=== PATIENT | female | born 1945 | race Caucasian/White ===

== ENCOUNTER → 2018-05-03 | Outpatient (CLI) | payer MEDICARE, OTHER ==
[~2018-05-03] MED LIST: AMLO10TA2 PO; ATEN1TAB4 PO; CALC1CAP8 PO; LISI40TA PO; MEGE20TA PO; MELO15TA24 PO; TAMO20TA PO
[2018-05-03 10:12] LABS: BASOPHILS # (AUTO) 0.03 x10^3/uL (0-0.1); BASOPHILS % (AUTO) 0 % (0-1); CULTURE INDICATED? YES; EOSINOPHILS # (AUTO) 0.24 x10^3/uL (0-0.4); EOSINOPHILS % (AUTO) 2 % (1-7); LYMPHOCYTES # (AUTO) 1.44 x10^3/uL (1-3.4); LYMPHOCYTES % (AUTO) 13 % (22-44); MD NO; MEAN CORPUSCULAR HEMOGLOBIN 31.2 pg (27.0-34.8); MEAN CORPUSCULAR HGB CONC 34.3 g/dL (32.4-35.8); MEAN PLATELET VOLUME 8.5 fL (7.4-10.4); MICROSCOPIC INDICATED; MONOCYTES # (AUTO) 0.97 x10^3/uL (0.2-0.8); MONOCYTES % (AUTO) 9 % (2-9); NEUTROPHILS # (AUTO) 8.59 x10^3/uL (1.8-6.8); NEUTROPHILS % (AUTO) 76 % (42-75); PLATELET COUNT 222 x10^3/uL (130-400); RED BLOOD COUNT 4.52 x10^6/uL (3.82-5.3); RED CELL DISTRIBUTION WIDTH 13.8 % (9.6-15.2)
[2018-05-03 10:20] LABS: ALANINE AMINOTRANSFERASE 29 U/L (12-78); ALBUMIN 3.5 g/dL (3.4-5.0); ANION GAP 8 mmol/L (5-15); CALCIUM 9.3 mg/dL (8.5-10.1); CHLORIDE 113 mmol/L (98-107)
[2018-05-03 10:22] LABS: ALKALINE PHOSPHATASE 60 U/L (45-117); BILIRUBIN,TOTAL 0.3 mg/dL (0.2-1.0); TOTAL PROTEIN 7.2 g/dL (6.4-8.2)
[2018-05-03 10:25] LABS: INTERNATIONAL NORMALIZED RATIO 1.05 (0.93-1.1); PROTHROMBIN TIME 10.9 Seconds (9.6-11.5)
[2018-05-03 10:31] LABS: HEMOGLOBIN A1C 5.9 % (4.2-6.3)
== END | disposition home or self-care (01) ==
LOC: STAR 08:52
PROVIDERS: ATTEND Orthopaedic Surgery
DX: Z01.818 Encounter for other preprocedural examination (principal); M17.12 Unilateral primary osteoarthritis, left knee
CPT/HCPCS: 36415; 80053; 81001; 83036; 85025; 85610; 85730; 87081; 87086; 87806; 93005; G0475

== ENCOUNTER 2018-05-10 08:28 | Observation (INO) | payer MEDICARE, OTHER ==
[~2018-05-10] VITALS: Ht 152.4 cm; Wt 80.9 kg
[~2018-05-10 08:28] MED LIST changes: +EPINEPHRINE 1 MG/ML, 1ML ONE; +KETOROLAC 60 MG/2 ML ONE; +ROPIvacaine/PF 0.2%, 20 ML ONE; +TRANEXAMIC ACID 100 MG/ML, 10ML ONE
[2018-05-10] MEDS ORDERED: LACTATED RINGERS 1,000 ML IV SCH (09:14)
[2018-05-10] MEDS ORDERED: LIDOCAINE-MPF 1%, 2ML ONE (09:17)
[2018-05-10] MEDS ORDERED: LIDOCAINE-MPF 1%, 2ML INFIL ONE (09:30)
[2018-05-10] MEDS ORDERED: ACETAMINOPHEN 500 MG TABLET PO ONE (09:30)
[2018-05-10] MEDS ORDERED: GABAPENTIN 300 MG CAPSULE PO ONE (09:30)
[2018-05-10] MEDS ORDERED: PROPOFOL 10 MG/ML, 20ML ONE (09:48)
[2018-05-10] MEDS ORDERED: MIDAZOLAM 1 MG/ML, 2ML ONE (09:48)
[2018-05-10] MEDS ORDERED: ROCURONIUM 10MG/ML,5ML ONE (09:48)
[2018-05-10] MEDS ORDERED: FENTANYL PF 250 MCG/5ML ONE (09:48)
[2018-05-10] MEDS ORDERED: NEOSTIGMINE 1 MG/ML, 10ML ONE (09:50)
[2018-05-10] MEDS ORDERED: GLYCOPYRROLATE 0.4 MG/2 ML, 2ML ONE (09:50)
[2018-05-10] MEDS ORDERED: CEFAZOLIN 1,000 MG ONE ×2 (09:51)
[2018-05-10] MEDS ORDERED: WATER-INJECTION,STERILE 10 ML IV ONE (09:51)
[2018-05-10] MEDS ORDERED: ROPIvacaine/PF 0.2%, 20 ML ONE (09:53)
[2018-05-10] MEDS ORDERED: OXYcodone IR 5MG TABLET PO PRN (11:30)
[2018-05-10] MEDS ORDERED: MAGNESIUM HYDROXIDE 8%, 30ML UDC PO PRN (11:30)
[2018-05-10] MEDS ORDERED: HYDROmorphone 1 MG/ML, 1ML IV PRN ×2 (11:30)
[2018-05-10] MEDS ORDERED: TRANEXAMIC ACID 1,000 MG in SODIUM CHLORIDE 0.9% 100 ML IVPB ONE (11:30)
[2018-05-10] MEDS ORDERED: SENNA/DOCUSATE TABLET PO PRN (11:30)
[2018-05-10] MEDS ORDERED: DEXAMETHASONE 4 MG/ML, 1ML ONE ×2 (11:30)
[2018-05-10] MEDS ORDERED: OXYcodone 5 MG/5 ML ORAL.SOL UDC PO PRN (11:30)
[2018-05-10] MEDS ORDERED: PROMETHAZINE 25 MG/ML, 1ML IM PRN (11:30)
[2018-05-10] MEDS ORDERED: PROMETHAZINE 12.5 MG SUPP PR PRN ×2 (11:30)
[2018-05-10] MEDS ORDERED: ONDANSETRON 4 MG TABLET PO PRN (11:30)
[2018-05-10] MEDS ORDERED: ONDANSETRON ODT 8 MG PO PRN (11:30)
[2018-05-10] MEDS ORDERED: hydrALAzine 20 MG/ML, 1ML IV PRN (11:30)
[2018-05-10] MEDS ORDERED: ACETAMINOPHEN 650 MG/20.3 ML UDC PO PRN (11:30)
[2018-05-10] MEDS ORDERED: BISACODYL 10 MG SUPP PR PRN (11:30)
[2018-05-10] MEDS ORDERED: ONDANSETRON 2MG/ML, 2ML IV PRN ×2 (11:30)
[2018-05-10] MEDS ORDERED: PROMETHAZINE 25 MG/ML, 1ML IV PRN (11:30)
[2018-05-10] MEDS ORDERED: MEPERIDINE/PF 25MG/0.5ML IVPush PRN (11:30)
[2018-05-10] MEDS ORDERED: LABETALOL 5MG/ML, 20ML IV PRN (11:30)
[2018-05-10] MEDS ORDERED: MORPHINE SULFATE 4 MG/ML, 1ML IVPush PRN (11:30)
[2018-05-10] MEDS ORDERED: PROMETHAZINE 25 MG SUPP PR PRN (11:30)
[2018-05-10] MEDS ORDERED: ALUMINUM/MAG/SIMETHICONE 30 ML UDC PO PRN (11:30)
[2018-05-10] MEDS ORDERED: ONDANSETRON 2MG/ML, 2ML ONE ×2 (11:52→13:57)
[2018-05-10] MEDS ORDERED: FENTANYL PF 100 MCG/2ML ONE ×2 (12:04→13:18)
[2018-05-10] MEDS ORDERED: PHENYLEPHRINE 10 MG/ML ONE (12:22)
[2018-05-10] MEDS: FENTANYL PF 100 MCG/2ML IV PRN ×2 (13:17→13:27)
[2018-05-10] MEDS ORDERED: OXYcodone 5 MG/5 ML ORAL.SOL UDC ONE (13:18)
[2018-05-10 14:45] VITALS: BP 136/60
[2018-05-10] MEDS: D5%-0.45NACL+KCL 20MEQ 1,000 ML IV SCH ×2 (16:27→21:07)
[2018-05-10] MEDS: CEFAZOLIN PMX 1GM/50ML 50 ML IVPB SCH (18:29)
[2018-05-10] MEDS: ASPIRIN 81 MG TABLET EC PO SCH (18:29)
[2018-05-10 19:30] VITALS: BP 137/54
[2018-05-10] MEDS ORDERED: MEGESTROL 40MG TABLET PO SCH (21:00)
[2018-05-10] MEDS: DOCUSATE 100 MG CAPSULE PO SCH (21:38)
[2018-05-10] MEDS: MEGESTROL ORAL.SUSP 40 MG/ML PO SCH (21:39)
[2018-05-10 23:51] VITALS: BP 148/69
[2018-05-11] MEDS: CEFAZOLIN PMX 1GM/50ML 50 ML IVPB SCH (04:01)
[2018-05-11 05:03] VITALS: BP 155/62
[2018-05-11] MEDS ORDERED: ATENOLOL 100 MG TABLET PO SCH (06:00)
[2018-05-11] MEDS ORDERED: DEXAMETHASONE 4 MG/ML, 1ML IVPush SCH (06:00)
[2018-05-11] MEDS ORDERED: ATENOLOL 50 MG TABLET ONE (06:26)
[2018-05-11] MEDS: ASPIRIN 81 MG TABLET EC PO SCH (06:29)
[2018-05-11 07:04] VITALS: BP 149/62
[2018-05-11] MEDS: DOCUSATE 100 MG CAPSULE PO SCH (08:31)
[2018-05-11] MEDS: MEGESTROL ORAL.SUSP 40 MG/ML PO SCH ×2 (08:31→09:23)
[2018-05-11] MEDS: D5%-0.45NACL+KCL 20MEQ 1,000 ML IV SCH (08:33)
[2018-05-11] MEDS ORDERED: OXYC5CAP2 PO (08:45)
[2018-05-11] MEDS ORDERED: ASPI-621 PO (08:45)
[2018-05-11] MEDS ORDERED: DOCU-131 PO (08:45)
[2018-05-11] MEDS ORDERED: TRAM50TA2 PO (08:45)
[2018-05-11] MEDS ORDERED: CELE200C PO (08:45)
[2018-05-11] MEDS ORDERED: ONDA4TAB10 PO (08:45)
[2018-05-11] MEDS ORDERED: TAMSULOSIN 0.4 MG CAP.ER.24H PO SCH (09:00)
[2018-05-11] MEDS ORDERED: AMLODIPINE 5 MG TABLET PO SCH (09:00)
[2018-05-11] MEDS ORDERED: LISINOPRIL 20 MG TABLET PO SCH (09:00)
[2018-05-11] MEDS ORDERED: TAMOXIFEN 10 MG TABLET PO SCH ×2 (09:00→09:30)
[2018-05-11] MEDS ORDERED: CHLORTHALIDONE 25 MG TABLET PO SCH (09:00)
[2018-05-11] MEDS ORDERED: KETOROLAC 30 MG/1 ML IV SCH (11:30)
== END 2018-05-11 11:08 | disposition home or self-care (01) ==
LOC: OUT 08:28 → ORIP 11:07 → 4NOR 14:50 → DCLOUNGE 05-11 10:45
PROVIDERS: ADMIT Orthopaedic Surgery; ATTEND Orthopaedic Surgery
DX: M17.12 Unilateral primary osteoarthritis, left knee (principal); Z79.899 Other long term (current) drug therapy
CPT/HCPCS: 27447; 36415; 73560; 85014; 85018; 96365; 96372; 96375; 96376; 97110; 97116; 97161; 97165; C1713; C1776; G0378; G8978; G8979; G8980; J0171; J0690; J1100; J1885; J2250; J2370; J2405; J2550; J2704; J2710; J2795; J3010; J3480; J3490; J7120

== ENCOUNTER 2018-05-18 06:40 | Inpatient (IN) | payer MEDICARE, OTHER ==
[~2018-05-18] VITALS: Ht 149.9 cm; Wt 72.1 kg
[~2018-05-18 06:40] MED LIST changes: +ASPI-621 PO; +CELE200C PO; +DOCU-131 PO; -EPINEPHRINE 1 MG/ML, 1ML ONE; -KETOROLAC 60 MG/2 ML ONE; +ONDA4TAB10 PO; +OXYC5CAP2 PO; -ROPIvacaine/PF 0.2%, 20 ML ONE; +TRAM50TA2 PO; -TRANEXAMIC ACID 100 MG/ML, 10ML ONE
[2018-05-18] MEDS ORDERED: SODIUM CHLORIDE FLUSH 10ML SYR IVF ONE (07:30)
[2018-05-18 07:49] LABS: BASOPHILS # (AUTO) 0.02 x10^3/uL (0-0.1); BASOPHILS % (AUTO) 0 % (0-1); EOSINOPHILS # (AUTO) 0.22 x10^3/uL (0-0.4); EOSINOPHILS % (AUTO) 2 % (1-7); LYMPHOCYTES # (AUTO) 0.74 x10^3/uL (1-3.4); LYMPHOCYTES % (AUTO) 7 % (22-44); MD NO; MEAN CORPUSCULAR HEMOGLOBIN 30.5 pg (27.0-34.8); MEAN CORPUSCULAR HGB CONC 33.9 g/dL (32.4-35.8); MEAN CORPUSCULAR VOLUME 90.1 fL (80-100); MEAN PLATELET VOLUME 7.6 fL (7.4-10.4); MONOCYTES # (AUTO) 0.83 x10^3/uL (0.2-0.8); MONOCYTES % (AUTO) 8 % (2-9); NEUTROPHILS # (AUTO) 9.18 x10^3/uL (1.8-6.8); NEUTROPHILS % (AUTO) 84 % (42-75); PLATELET COUNT 241 x10^3/uL (130-400); RED BLOOD COUNT 3.99 x10^6/uL (3.82-5.3); RED CELL DISTRIBUTION WIDTH 14.1 % (9.6-15.2)
[2018-05-18 07:56] LABS: ALBUMIN 3.1 g/dL (3.4-5.0); ANION GAP 7 mmol/L (5-15); CALCIUM 9.2 mg/dL (8.5-10.1); CHLORIDE 106 mmol/L (98-107); CREATININE 0.92 mg/dL (0.55-1.02)
[2018-05-18 09:28] LABS: HCT (SEDRATE) 35.9 % (34.6-47.8)
[2018-05-18 09:59] VITALS: BP 139/53
[2018-05-18 12:23] VITALS: BP 122/79
[2018-05-18] MEDS ORDERED: ACETAMINOPHEN 325 MG TABLET PO PRN (12:30)
[2018-05-18] MEDS ORDERED: ONDANSETRON ODT 4 MG PO PRN (12:30)
[2018-05-18] MEDS ORDERED: METHOCARBAMOL 500 MG TABLET PO PRN (12:30)
[2018-05-18] MEDS: ENOXAPARIN 40 MG/0.4 ML SQ SCH (13:13)
[2018-05-18] MEDS ORDERED: OXYcodone IR 5MG TABLET PO PRN (16:00)
[2018-05-18] MEDS ORDERED: OXYCODONE MC SCH (16:00)
[2018-05-18] MEDS ORDERED: DOCUSATE 100 MG CAPSULE PO PRN (16:00)
[2018-05-18 16:02] LABS: CULTURE INDICATED? YES; MICROSCOPIC INDICATED
[2018-05-18 19:17] VITALS: BP 150/68
[2018-05-18] MEDS: ASPIRIN 81 MG TABLET EC PO SCH (20:58)
[2018-05-18] MEDS: MEGESTROL 40MG TABLET PO SCH (20:59)
[2018-05-19 00:37] VITALS: BP 146/56
[2018-05-19 07:06] VITALS: BP 148/71
[2018-05-19] MEDS: LISINOPRIL 20 MG TABLET PO SCH (09:00)
[2018-05-19] MEDS ORDERED: LISINOPRIL 10 MG TABLET ONE ×2 (09:46→09:56)
[2018-05-19] MEDS: ATENOLOL 100 MG TABLET PO SCH (09:53)
[2018-05-19] MEDS: CHLORTHALIDONE 25 MG TABLET PO SCH (09:54)
[2018-05-19] MEDS: TAMOXIFEN 10 MG TABLET PO SCH (09:57)
[2018-05-19] MEDS: MEGESTROL 40MG TABLET PO SCH ×2 (09:59→21:32)
[2018-05-19] MEDS: ASPIRIN 81 MG TABLET EC PO SCH ×2 (09:59→21:36)
[2018-05-19] MEDS: AMLODIPINE 5 MG TABLET PO SCH (10:00)
[2018-05-19] MEDS ORDERED: GADOBUTROL 7.5 MMOL/7.5 ML PFS ONE (11:58)
[2018-05-19] MEDS: ENOXAPARIN 40 MG/0.4 ML SQ SCH (12:31)
[2018-05-19 14:33] VITALS: BP 124/36
[2018-05-19 18:53] VITALS: BP 145/78
[2018-05-20 00:24] VITALS: BP 145/60
[2018-05-20 06:46] VITALS: BP 124/55
[2018-05-20] MEDS: LISINOPRIL 20 MG TABLET PO SCH (09:45)
[2018-05-20] MEDS: MEGESTROL 40MG TABLET PO SCH ×2 (09:45→21:20)
[2018-05-20] MEDS: AMLODIPINE 5 MG TABLET PO SCH (09:46)
[2018-05-20] MEDS: ASPIRIN 81 MG TABLET EC PO SCH ×2 (09:46→21:22)
[2018-05-20] MEDS: ATENOLOL 100 MG TABLET PO SCH (09:46)
[2018-05-20] MEDS: TAMOXIFEN 10 MG TABLET PO SCH (09:47)
[2018-05-20 09:53] LABS: BASOPHILS # (AUTO) 0.02 x10^3/uL (0-0.1); BASOPHILS % (AUTO) 0 % (0-1); EOSINOPHILS # (AUTO) 0.29 x10^3/uL (0-0.4); EOSINOPHILS % (AUTO) 3 % (1-7); LYMPHOCYTES # (AUTO) 1.32 x10^3/uL (1-3.4); LYMPHOCYTES % (AUTO) 13 % (22-44); MD NO; MEAN CORPUSCULAR HEMOGLOBIN 31.3 pg (27.0-34.8); MEAN CORPUSCULAR HGB CONC 34.1 g/dL (32.4-35.8); MEAN CORPUSCULAR VOLUME 91.7 fL (80-100); MEAN PLATELET VOLUME 7.9 fL (7.4-10.4); MONOCYTES # (AUTO) 0.91 x10^3/uL (0.2-0.8); MONOCYTES % (AUTO) 9 % (2-9); NEUTROPHILS # (AUTO) 7.79 x10^3/uL (1.8-6.8); NEUTROPHILS % (AUTO) 75 % (42-75); PLATELET COUNT 248 x10^3/uL (130-400); RED BLOOD COUNT 3.95 x10^6/uL (3.82-5.3); RED CELL DISTRIBUTION WIDTH 14.5 % (9.6-15.2)
[2018-05-20] MEDS: CHLORTHALIDONE 25 MG TABLET PO SCH (11:37)
[2018-05-20 12:28] VITALS: BP 104/63
[2018-05-20] MEDS: ENOXAPARIN 40 MG/0.4 ML SQ SCH (15:06)
[2018-05-20 18:57] VITALS: BP 129/55
[2018-05-21 01:09] VITALS: BP 145/61
[2018-05-21 08:18] VITALS: BP 148/65
[2018-05-21] MEDS: MEGESTROL 40MG TABLET PO SCH ×2 (09:00→21:11)
[2018-05-21] MEDS: LISINOPRIL 20 MG TABLET PO SCH (09:00)
[2018-05-21] MEDS: AMLODIPINE 5 MG TABLET PO SCH (09:08)
[2018-05-21] MEDS: ASPIRIN 81 MG TABLET EC PO SCH ×2 (09:08→21:11)
[2018-05-21] MEDS: CHLORTHALIDONE 25 MG TABLET PO SCH (09:08)
[2018-05-21] MEDS: ATENOLOL 100 MG TABLET PO SCH (09:08)
[2018-05-21] MEDS: TAMOXIFEN 10 MG TABLET PO SCH (09:18)
[2018-05-21] MEDS: ENOXAPARIN 40 MG/0.4 ML SQ SCH (16:38)
[2018-05-21 18:35] VITALS: BP 111/47
[2018-05-22 00:26] VITALS: BP 114/47
[2018-05-22 07:59] VITALS: BP 139/59
[2018-05-22] MEDS ORDERED: METH500T7 PO (08:16)
[2018-05-22] MEDS: MEGESTROL 40MG TABLET PO SCH ×2 (09:00→21:35)
[2018-05-22] MEDS: ASPIRIN 81 MG TABLET EC PO SCH ×2 (09:30→21:35)
[2018-05-22] MEDS: LISINOPRIL 20 MG TABLET PO SCH (09:30)
[2018-05-22] MEDS: ATENOLOL 100 MG TABLET PO SCH (09:30)
[2018-05-22] MEDS: AMLODIPINE 5 MG TABLET PO SCH (09:30)
[2018-05-22] MEDS: TAMOXIFEN 10 MG TABLET PO SCH (09:36)
[2018-05-22] MEDS: CHLORTHALIDONE 25 MG TABLET PO SCH (09:40)
[2018-05-22 14:01] VITALS: BP 132/49
[2018-05-22] MEDS: ENOXAPARIN 40 MG/0.4 ML SQ SCH (16:03)
[2018-05-22 19:16] VITALS: BP 120/46
[2018-05-23 02:11] VITALS: BP 101/43
[2018-05-23 07:58] VITALS: BP 146/54
[2018-05-23] MEDS: MEGESTROL 40MG TABLET PO SCH (09:00)
[2018-05-23] MEDS: ASPIRIN 81 MG TABLET EC PO SCH (09:42)
[2018-05-23] MEDS: LISINOPRIL 20 MG TABLET PO SCH (09:42)
[2018-05-23] MEDS: ATENOLOL 100 MG TABLET PO SCH (09:42)
[2018-05-23] MEDS: AMLODIPINE 5 MG TABLET PO SCH (09:42)
[2018-05-23] MEDS: CHLORTHALIDONE 25 MG TABLET PO SCH (09:42)
[2018-05-23] MEDS: TAMOXIFEN 10 MG TABLET PO SCH (09:44)
[2018-05-23 13:32] VITALS: BP 116/50
== END 2018-05-23 14:25 | DRG 543 ==
LOC: ED 08:07 → EDIP 09:07 → OBSVTOIN 09:07 → INTOOBSV 09:07 → 3NE 10:01
PROVIDERS: ADMIT Internal Medicine; ATTEND Internal Medicine
DX: M48.56XA Collapsed vertebra, not elsewhere classified, lumbar region, initial encounter for fracture (principal); E44.1 Mild protein-calorie malnutrition; R26.2 Difficulty in walking, not elsewhere classified; D72.829 Elevated white blood cell count, unspecified; E74.39 Other disorders of intestinal carbohydrate absorption; R73.9 Hyperglycemia, unspecified; E78.5 Hyperlipidemia, unspecified; Z96.652 Presence of left artificial knee joint; M17.12 Unilateral primary osteoarthritis, left knee; K59.00 Constipation, unspecified; I11.9 Hypertensive heart disease without heart failure; Z85.43 Personal history of malignant neoplasm of ovary; Z87.891 Personal history of nicotine dependence; Z79.899 Other long term (current) drug therapy
CPT/HCPCS: 36415; 72158; 80048; 81001; 82040; 85025; 85651; 86140; 87086; 99285; A9585; J1650; G0378

== ENCOUNTER 2020-06-04 07:30 | Inpatient (IN) | payer MEDICARE, OTHER ==
[~2020-06-04] VITALS: Ht 152.4 cm; Wt 78.2 kg
[~2020-06-04 07:30] MED LIST changes: -AMLO10TA2 PO; +AMLO10TA8 PO; -ASPI-621 PO; +ASPI81TA45 PO; +KETOROLAC 60 MG/2 ML ONE; -MEGE20TA PO; +MEGE20TA3 PO; +METH500T7 PO; +ROPIvacaine/PF 0.2%, 20 ML ONE; +SODIUM CHLORIDE 0.9% 50 ML ONE; +TRANEXAMIC ACID 100 MG/ML, 10ML ONE
[2020-06-04 08:18] VITALS: BP 150/82
[2020-06-04] MEDS ORDERED: CHLORHEXIDINE 15 ML UDC MM ONE (08:30)
[2020-06-04 08:35] LABS: BASOPHILS # (AUTO) 0.02 x10^3/uL (0-0.1); BASOPHILS % (AUTO) 0 % (0-1); EOSINOPHILS # (AUTO) 0.09 x10^3/uL (0-0.4); EOSINOPHILS % (AUTO) 1 % (1-7); LYMPHOCYTES # (AUTO) 1.22 x10^3/uL (1-3.4); LYMPHOCYTES % (AUTO) 12 % (22-44); MD NO; MEAN CORPUSCULAR HEMOGLOBIN 30.1 pg (27.0-34.8); MEAN CORPUSCULAR HGB CONC 33.5 g/dL (32.4-35.8); MEAN CORPUSCULAR VOLUME 89.9 fL (80-100); MEAN PLATELET VOLUME 8.3 fL (7.4-10.4); MONOCYTES # (AUTO) 0.98 x10^3/uL (0.2-0.8); MONOCYTES % (AUTO) 9 % (2-9); NEUTROPHILS # (AUTO) 8.26 x10^3/uL (1.8-6.8); NEUTROPHILS % (AUTO) 78 % (42-75); PLATELET COUNT 238 x10^3/uL (130-400); RED BLOOD COUNT 4.57 x10^6/uL (3.82-5.3)
[2020-06-04 08:48] LABS: INTERNATIONAL NORMALIZED RATIO 1.04 (0.93-1.1); PROTHROMBIN TIME 10.7 Seconds (9.6-11.5)
[2020-06-04 08:49] LABS: ALBUMIN 3.6 g/dL (3.4-5.0); ANION GAP 7 mmol/L (5-15); CHLORIDE 107 mmol/L (98-107)
[2020-06-04 08:52] LABS: ALANINE AMINOTRANSFERASE 164 U/L (12-78); ALKALINE PHOSPHATASE 89 U/L (45-117); BILIRUBIN,TOTAL 0.6 mg/dL (0.2-1.0); TOTAL PROTEIN 7.6 g/dL (6.4-8.2)
[2020-06-04] MEDS ORDERED: ZINC220C7 PO (09:14)
[2020-06-04] MEDS ORDERED: QUERCETIN PO (09:14)
[2020-06-04] MEDS ORDERED: DOCU-131 PO (09:14)
[2020-06-04] MEDS ORDERED: MELO7.5T31 PO (09:14)
[2020-06-04] MEDS ORDERED: CHLO25TA PO (09:14)
[2020-06-04] MEDS ORDERED: ASCO100018 PO (09:14)
[2020-06-04] MEDS ORDERED: ACET-1600 PO (09:14)
[2020-06-04] MEDS ORDERED: MULT-249 PO (09:14)
[2020-06-04] MEDS ORDERED: FAMO-79 PO (09:14)
[2020-06-04] MEDS ORDERED: VITAMIN D PO (09:14)
[2020-06-04] MEDS ORDERED: GABAPENTIN 300 MG CAPSULE PO ONE (09:30)
[2020-06-04] MEDS ORDERED: ACETAMINOPHEN 500 MG TABLET PO ONE (09:30)
[2020-06-04] MEDS: LACTATED RINGERS 1,000 ML IV SCH (09:32)
[2020-06-04] MEDS ORDERED: FENTANYL PF 250 MCG/5ML ONE (09:48)
[2020-06-04] MEDS ORDERED: ROPIvacaine/PF 0.2%, 20 ML ONE (09:55)
[2020-06-04] MEDS ORDERED: OXYcodone 5 MG/5 ML ORAL.SOL UDC PO PRN ×2 (10:30→12:30)
[2020-06-04] MEDS ORDERED: PROMETHAZINE 25 MG/ML, 1ML IVPush PRN ×2 (10:30→12:30)
[2020-06-04] MEDS ORDERED: hydrALAzine 20 MG/ML, 1ML IV PRN ×2 (10:30→12:30)
[2020-06-04] MEDS ORDERED: morphine SULFATE 10 MG/ML, 1ML IVPush PRN ×2 (10:30→12:30)
[2020-06-04] MEDS ORDERED: HALOPERIDOL 5 MG/ML IV PRN ×2 (10:30→12:30)
[2020-06-04] MEDS ORDERED: LABETALOL 5MG/ML, 20ML IV PRN ×2 (10:30→12:30)
[2020-06-04] MEDS ORDERED: MEPERIDINE/PF 25MG/0.5ML IVPush PRN ×2 (10:30→12:30)
[2020-06-04] MEDS ORDERED: HYDROmorphone 1 MG/ML, 1ML INJ IVPush PRN ×3 (10:30→12:30)
[2020-06-04] MEDS ORDERED: ACETAMINOPHEN 325 MG TABLET PO PRN ×2 (10:30→12:30)
[2020-06-04] MEDS ORDERED: DIPHENHYDRAMINE 25 MG CAPSULE PO PRN (11:00)
[2020-06-04] MEDS ORDERED: DIPHENHYDRAMINE 50 MG/ML, 1ML IVPush PRN (11:00)
[2020-06-04] MEDS ORDERED: METOCLOPRAMIDE 10MG TABLET PO PRN (11:00)
[2020-06-04] MEDS ORDERED: BISACODYL 10 MG SUPP PR PRN (11:00)
[2020-06-04] MEDS ORDERED: ONDANSETRON 2MG/ML, 2ML IVPush PRN (11:00)
[2020-06-04] MEDS ORDERED: ONDANSETRON 4 MG TABLET PO PRN (11:00)
[2020-06-04] MEDS ORDERED: ONDANSETRON 2MG/ML, 2ML IV PRN (11:00)
[2020-06-04] MEDS ORDERED: ALUMINUM/MAG/SIMETHICONE 30 ML UDC PO PRN (11:00)
[2020-06-04] MEDS ORDERED: OXYcodone IR 5MG TABLET PO PRN (11:00)
[2020-06-04] MEDS ORDERED: POLYETHYLENE GLYCOL 17 GM PACKET PO PRN (11:00)
[2020-06-04] MEDS ORDERED: ACETAMINOPHEN 650 MG/20.3 ML UDC PO PRN (11:00)
[2020-06-04] MEDS ORDERED: VANCOMYCIN PER PHARMACY MC PRN (11:00)
[2020-06-04] MEDS ORDERED: SENNA/DOCUSATE TABLET PO PRN (11:00)
[2020-06-04] MEDS ORDERED: MAGNESIUM HYDROXIDE 8%, 30ML UDC PO PRN (11:00)
[2020-06-04] MEDS ORDERED: VANCOMYCIN 1,200 MG in SODIUM CHLORIDE 0.9% 250 ML IV ONE (11:00)
[2020-06-04] MEDS ORDERED: VANCOMYCIN 1,000 MG ONE ×2 (11:02→11:43)
[2020-06-04] MEDS ORDERED: CEFAZOLIN 1,000 MG ONE (11:48)
[2020-06-04] MEDS ORDERED: DEXAMETHASONE 4 MG/ML, 1ML ONE (11:48)
[2020-06-04] MEDS ORDERED: GLYCOPYRROLATE 0.2MG/1ML, 5ML ONE (11:48)
[2020-06-04] MEDS ORDERED: PROPOFOL 10 MG/ML, 20ML ONE (11:48)
[2020-06-04] MEDS ORDERED: NEOSTIGMINE 1 MG/ML, 10ML ONE (11:48)
[2020-06-04] MEDS ORDERED: ROCURONIUM 10MG/ML,5ML ONE (11:48)
[2020-06-04] MEDS ORDERED: ONDANSETRON 2MG/ML, 2ML ONE (11:48)
[2020-06-04] MEDS ORDERED: FENTANYL PF 100 MCG/2ML IV PRN (12:30)
[2020-06-04] MEDS ORDERED: TRANEXAMIC ACID 1,000 MG in SODIUM CHLORIDE 0.9% 100 ML IVPB ONE (12:30)
[2020-06-04] MEDS ORDERED: FENTANYL PF 100 MCG/2ML ONE (12:41)
[2020-06-04] MEDS ORDERED: OXYcodone 5 MG/5 ML ORAL.SOL UDC ONE (12:41)
[2020-06-04] MEDS: FENTANYL PF 100 MCG/2ML IV PRN ×2 (12:54→13:20)
[2020-06-04] MEDS: POTASSIUM CHLORIDE 20 MEQ in D5%-0.45% NACL 1,000 ML IV SCH (16:27)
[2020-06-04 19:36] VITALS: BP 121/76
[2020-06-04] MEDS: CEFAZOLIN PMX 1GM/50ML 50 ML IVPB SCH (19:46)
[2020-06-04] MEDS: KETOROLAC 30 MG/1 ML IV SCH (19:46)
[2020-06-04] MEDS: MEGESTROL 40MG TABLET PO SCH (19:54)
[2020-06-04] MEDS: FAMOTIDINE 20 MG TABLET PO SCH (19:54)
[2020-06-04] MEDS: DOCUSATE 100 MG CAPSULE PO SCH (19:54)
[2020-06-04] MEDS ORDERED: FAMOTIDINE 20 MG TABLET PO SCH (21:00)
[2020-06-04] MEDS ORDERED: VANCOMYCIN PMX 1GM/200ML 200 ML IVPB ONE (23:00)
[2020-06-04 23:19] VITALS: BP 102/72
[2020-06-05] MEDS: POTASSIUM CHLORIDE 20 MEQ in D5%-0.45% NACL 1,000 ML IV SCH ×3 (02:59→20:40)
[2020-06-05 03:08] VITALS: BP 138/52
[2020-06-05] MEDS: CEFAZOLIN PMX 1GM/50ML 50 ML IVPB SCH (04:05)
[2020-06-05] MEDS: KETOROLAC 30 MG/1 ML IV SCH ×2 (04:14→11:55)
[2020-06-05] MEDS ORDERED: DEXAMETHASONE 4 MG/ML, 1ML IVPush ONE (06:00)
[2020-06-05] MEDS: ASPIRIN 81 MG TABLET EC PO SCH ×2 (06:02→20:38)
[2020-06-05] MEDS: ATENOLOL 100 MG TABLET PO SCH (06:02)
[2020-06-05 07:13] VITALS: BP 137/94
[2020-06-05 07:36] LABS: ANION GAP 4 mmol/L (5-15); CALCIUM 8.9 mg/dL (8.5-10.1); CHLORIDE 111 mmol/L (98-107); CREATININE 1.16 mg/dL (0.55-1.02)
[2020-06-05 07:37] LABS: MEAN CORPUSCULAR HEMOGLOBIN 30.1 pg (27.0-34.8); MEAN CORPUSCULAR HGB CONC 33.5 g/dL (32.4-35.8); MEAN CORPUSCULAR VOLUME 89.7 fL (80-100); MEAN PLATELET VOLUME 8.3 fL (7.4-10.4); PLATELET COUNT 210 x10^3/uL (130-400); RED BLOOD COUNT 3.58 x10^6/uL (3.82-5.3)
[2020-06-05 08:13] LABS: BASOPHILS % (AUTO) 0 % (0-1); EOSINOPHILS # (AUTO) 0.01 x10^3/uL (0-0.4); EOSINOPHILS % (AUTO) 0 % (1-7); LYMPHOCYTES # (AUTO) 0.64 x10^3/uL (1-3.4); LYMPHOCYTES % (AUTO) 4 % (22-44); MD SCAN; MONOCYTES # (AUTO) 1.21 x10^3/uL (0.2-0.8); MONOCYTES % (AUTO) 8 % (2-9); NEUTROPHILS # (AUTO) 13.59 x10^3/uL (1.8-6.8); NEUTROPHILS % (AUTO) 88 % (42-75)
[2020-06-05] MEDS: AMLODIPINE 10 MG TAB PO SCH (08:48)
[2020-06-05] MEDS: MEGESTROL 40MG TABLET PO SCH ×2 (08:48→20:38)
[2020-06-05] MEDS: LISINOPRIL 40 MG TABLET PO SCH (08:48)
[2020-06-05] MEDS: CHLORTHALIDONE 25 MG TABLET PO SCH (08:48)
[2020-06-05] MEDS: TAMSULOSIN 0.4 MG CAP.ER.24H PO SCH (08:48)
[2020-06-05] MEDS: DOCUSATE 100 MG CAPSULE PO SCH ×2 (08:48→20:39)
[2020-06-05] MEDS: TAMOXIFEN 10 MG TABLET PO SCH (11:08)
[2020-06-05 12:47] VITALS: BP 138/82
[2020-06-05] MEDS ORDERED: METOCLOPRAMIDE 10MG TABLET PO PRN (16:00)
[2020-06-05 19:32] VITALS: BP 112/63
[2020-06-05] MEDS: FAMOTIDINE 20 MG TABLET PO SCH (20:38)
[2020-06-06 01:12] VITALS: BP 131/61
[2020-06-06] MEDS: ATENOLOL 100 MG TABLET PO SCH (06:17)
[2020-06-06 07:02] VITALS: BP 149/73
[2020-06-06] MEDS: POTASSIUM CHLORIDE 20 MEQ in D5%-0.45% NACL 1,000 ML IV SCH (07:15)
[2020-06-06] MEDS: LISINOPRIL 40 MG TABLET PO SCH (07:45)
[2020-06-06] MEDS: AMLODIPINE 10 MG TAB PO SCH (07:46)
[2020-06-06] MEDS: MEGESTROL 40MG TABLET PO SCH (07:46)
[2020-06-06] MEDS: ASPIRIN 81 MG TABLET EC PO SCH (07:46)
[2020-06-06] MEDS: DOCUSATE 100 MG CAPSULE PO SCH (07:46)
[2020-06-06] MEDS: CHLORTHALIDONE 25 MG TABLET PO SCH (07:46)
[2020-06-06] MEDS: TAMSULOSIN 0.4 MG CAP.ER.24H PO SCH (07:46)
[2020-06-06] MEDS: TAMOXIFEN 10 MG TABLET PO SCH (08:16)
[2020-06-06] MEDS ORDERED: SENN-129 PO (12:37)
[2020-06-06] MEDS ORDERED: ASPI81TA59 PO (12:37)
[2020-06-06] MEDS ORDERED: ONDA4TAB7 PO (12:38)
[2020-06-06] MEDS ORDERED: TRAM100T39 PO (12:40)
[2020-06-06] MEDS ORDERED: OXYC5TAB2 PO (12:41)
[2020-06-06 12:48] VITALS: BP 105/44
[2020-06-06 15:09] VITALS: BP 112/66
== END 2020-06-06 15:00 | DRG 488 ==
LOC: ORIP 07:30 → 4NE 14:30
PROVIDERS: ADMIT Orthopaedic Surgery; ATTEND Orthopaedic Surgery
PROC: 0SUV09Z Supplement Right Knee Joint, Tibial Surface with Liner, Open Approach (ICD-10-PCS; 2020-06-04)
PROC: 0SPC09Z Removal of Liner from Right Knee Joint, Open Approach (ICD-10-PCS; principal; 2020-06-04 11:00)
DX: T84.022A Instability of internal right knee prosthesis, initial encounter (principal); R71.0 Precipitous drop in hematocrit; Z20.828 Contact with and (suspected) exposure to other viral communicable diseases; W18.39XA Other fall on same level, initial encounter; Y93.89 Activity, other specified; Y92.89 Other specified places as the place of occurrence of the external cause; Y99.8 Other external cause status; F03.90 Unspecified dementia, unspecified severity, without behavioral disturbance, psychotic disturbance, mood disturbance, and anxiety; Z79.899 Other long term (current) drug therapy; Z79.891 Long term (current) use of opiate analgesic; I10 Essential (primary) hypertension; K21.9 Gastro-esophageal reflux disease without esophagitis
CPT/HCPCS: 36415; 80048; 80053; 83036; 85014; 85018; 85025; 85610; 85730; 87015; 87070; 87075; 87081; 87102; 87116; 87176; 87205; 87206; 87635; 87806; 93005; G0378; J0690; J1100; J1170; J1885; J2405; J2704; J2710; J2795; J3010; J3370; J3480; C1776; G0475; J7120

== ENCOUNTER 2021-06-20 09:30 | Outpatient (CLI) | payer MEDICARE ==
[~2021-06-20 09:30] MED LIST changes: +ACET-1600 PO; +AMLO-211 PO; -AMLO10TA8 PO; +ASCO100018 PO; +ASPI81TA59 PO; +CHLO25TA PO; +FAMO-79 PO; -KETOROLAC 60 MG/2 ML ONE; -LISI40TA PO; +LISI40TA9 PO; +MELO7.5T31 PO; +METH-639 PO; -METH500T7 PO; +MULT-249 PO; +ONDA4TAB7 PO; +OXYC5TAB2 PO; +QUERCETIN PO; -ROPIvacaine/PF 0.2%, 20 ML ONE; +SENN-129 PO; -SODIUM CHLORIDE 0.9% 50 ML ONE; +TRAM100T39 PO; -TRANEXAMIC ACID 100 MG/ML, 10ML ONE; +VITAMIN D PO; +ZINC220C7 PO
[2021-06-20 11:00] LABS: BASOPHILS % (AUTO) 1 % (0-1); EOSINOPHILS % (AUTO) 4 % (1-7); LYMPHOCYTES % (AUTO) 12 % (22-44); MEAN CORPUSCULAR HEMOGLOBIN 31.2 pg (27.0-34.8); MEAN PLATELET VOLUME 8.7 fL (7.4-10.4); MONOCYTES % (AUTO) 10 % (2-9); NEUTROPHILS % (AUTO) 73 % (42-75); PLATELET COUNT 195 x10^3/uL (130-400); RED BLOOD COUNT 4.16 x10^6/uL (3.82-5.3)
[2021-06-20 11:05] LABS: ALANINE AMINOTRANSFERASE 25 U/L (12-78); ALBUMIN 2.9 g/dL (3.4-5.0); ANION GAP 8 mmol/L (5-15); CALCIUM 9.3 mg/dL (8.5-10.1); CHLORIDE 104 mmol/L (98-107)
[2021-06-20 11:07] LABS: ALKALINE PHOSPHATASE 69 U/L (45-117); BILIRUBIN,TOTAL 0.3 mg/dL (0.2-1.0); TOTAL PROTEIN 6.6 g/dL (6.4-8.2)
[2021-06-27] MEDS ORDERED: HYDR-2214 PO (08:44)
== END 2021-06-20 23:59 | disposition home or self-care (01) ==
LOC: STAR 09:30
PROVIDERS: ATTEND Thoracic Surgery (Cardiothoracic Vascular Surgery)
DX: Z01.812 Encounter for preprocedural laboratory examination (principal); Z20.822 Contact with and (suspected) exposure to COVID-19; C78.01 Secondary malignant neoplasm of right lung; R00.1 Bradycardia, unspecified
CPT/HCPCS: 36415; 80053; 85025; 87635; 93005